=== PATIENT | female | born 1950 | race Two or more races ===

== ENCOUNTER 2017-12-12 13:47 | Inpatient (IN) | payer MEDICARE, OTHER ==
[~2017-12-12] VITALS: Ht 165.1 cm; Wt 76.7 kg
--- NOTE | 2017-12-12 00:24 | NUR ---
SERVICE CAPTAIN OPENING NOTE RECEIVED PATIENT IN BED, ALERT ORIENTED X4, ON ROOM AIR. IN NO APPARENT DISTRESS OR DISCOMFORT AT THIS TIME. RESPIRATIONS EVEN AND UNLABORED, DENIES CHEST PAIN AND SOB. PATIENT ABLE TO VERBALIZE NEEDS. RIGHT HAD IV SALINE LOCK, PATENT AND INTACT FLASHED WITH NS. PATIENT IS UNSTEADY DUE TO DIZZINESS NEEDS ASSISTANCE AMBULATING. ABLE TO REPOSITION IN BED INDEPENDENTLY. ALL NEEDS ATTENDED, SAFETY MEASURES IN PLACE, BED IN LOW LOCKED POSITION, SIDE RAILS UP X2, CALL LIGHT WITHIN EASY REACH, WILL CONTINUE TO MONITOR. Addendum: 12/13/17 at 0622 by JAYLAN NIX RN 12/12 1914 OPENING NOTE
--- NOTE | 2017-12-12 13:56 | NUR ---
IV ACCESS SPEAKER WIRER.
--- NOTE | 2017-12-12 14:00 | NUR ---
[id number] FROM LIBRARY: S/P WITNESSED SYNCOPE, LOW BLOOD PRESSURE. VSS. PT [id number]. SEEN BY MD FOR EVAL. NO HEAD TRAUMA NOTED. PT REPORTS SHE HAD SYNCOPAL EPISODES RECENTLY UNSURE OF THE CAUSE. SAFETY AND COMFORT MEASURES PROVIDED. WILL MONITOR.
[2017-12-12] MEDS ORDERED: ONDANSETRON HCL/PF 4 MG/2 ML VIAL ONE (14:39)
[2017-12-12 14:47] LABS: BASOPHILS % (AUTO) 0.7 % (0.0-2.0); EOSINOPHILS % (AUTO) 1.2 % (0.0-6.0); HEMATOCRIT 34 % (33-45); HEMOGLOBIN 12.2 g/dL (11.5-14.8); LYMPHOCYTES % (AUTO) 26.2 % (20.0-44.0); MEAN CORPUSCULAR HGB CONC 36 g/dl (31.0-36.0); MEAN CORPUSCULAR VOLUME 82 fL (82-100); MONOCYTES # (AUTO) 0.2 /CMM (0.1-1.30); MONOCYTES % (AUTO) 6.3 % (2.0-12.0); NEUTROPHILS # (AUTO) 2.8 /CMM (1.8-8.9); NEUTROPHILS % (AUTO) 65.6 % (43.0-81.0); PLATELET COUNT (AUTO) 199 /CMM (150-450); RDW COEFFICIENT OF VARIATION 12.4 (11.5-15.0); RED BLOOD CELL COUNT(AUTO) 4.16 MIL/uL (4.0-5.2)
[2017-12-12 14:57] LABS: CALCIUM, SERUM 9.2 mg/dL (8.5-10.1); CREATININE 0.8 mg/dL (0.6-1.3)
[2017-12-12] MEDS ORDERED: ONDANSETRON HCL/PF 4 MG/2 ML VIAL IVP ONE (15:00)
[2017-12-12 15:01] LABS: INR 0.9 (0.85-1.15)
[2017-12-12 15:06] LABS: ALBUMIN 3.5 g/dL (3.4-5.0); BILIRUBIN,DIRECT 0.1 mg/dL (0.0-0.2); BILIRUBIN,TOTAL 0.2 mg/dL (0.2-1.0); TOTAL PROTEIN, SERUM 6.5 g/dL (6.4-8.2)
[2017-12-12] MEDS ORDERED: FLUO20CA36 PO (15:37)
[2017-12-12] MEDS ORDERED: GABA800T2 PO (15:37)
[2017-12-12] MEDS ORDERED: HYDR-548 PO (15:37)
[2017-12-12] MEDS ORDERED: BACL10TA PO (15:37)
[2017-12-12] MEDS ORDERED: AMLO5TAB7 PO (15:37)
[2017-12-12] MEDS ORDERED: INTE44DI SQ (15:37)
--- NOTE | 2017-12-12 16:07 | NUR ---
CALLED [employer]ERSON[employer] TELEVISION TUBE INSPECTOR WAS PAGED.
--- NOTE | 2017-12-12 16:35 | NUR ---
REPORT GIVEN TO YANCI Cardoza RN FOR TELE ROOM 306-1
[2017-12-12 17:00] VITALS: BP 134/83
--- NOTE | 2017-12-12 17:00 | NUR ---
PT. ADMITTED TO RM.306-2.UNSTEADY ON FEET,NEEDS ASSIST,ALERT AND ORIENTED X4.PLEASANT AND VS STABLE.HOOKED UP TO TELE SR RATE OF 65.
--- NOTE | 2017-12-12 18:20 | NUR ---
NO COMPLAINTS OFFERED.DR. NARVAEZ HERE NOW GIVING ADMIT ORDERS.
[2017-12-12] MEDS ORDERED: ONDANSETRON HCL/PF 4 MG/2 ML VIAL IVP PRN (19:00)
[2017-12-12] MEDS ORDERED: HYDROCODONE/APAP 10/325MG 1 EA TABLET PO PRN (19:00)
[2017-12-12] MEDS ORDERED: INTERFERON BETA SQ SCH (19:00)
[2017-12-12] MEDS ORDERED: Z GUARD REMEDY 2 OZ OINT TP PRN (19:00)
[2017-12-12] MEDS ORDERED: MAG HYDROX/AL HYDROX/SIMETH 30 ML UDC PO PRN (19:00)
[2017-12-12] MEDS ORDERED: IV NS 0.9% 1,000 ML BAG IV ONE (19:00)
[2017-12-12] MEDS ORDERED: ACETAMINOPHEN 325 MG TABLET PO PRN (19:00)
[2017-12-12] MEDS ORDERED: ALBUMIN SQ SCH (19:00)
[2017-12-12] MEDS ORDERED: MAGNESIUM HYDROXIDE 30 ML UDC PO PRN (19:00)
[2017-12-12] MEDS ORDERED: ZOLPIDEM TARTRATE 5 MG TABLET PO PRN (19:00)
--- NOTE | 2017-12-12 19:00 | NUR ---
PT. STATES RECENT MRI-THINKS SHE HAS A CYST IN SACRAL AREA OF SPINE.
--- NOTE | 2017-12-12 19:15 | NUR ---
[employer]BILE CLUB INFORMATION CLERK OPENING NOTE RECEIVED PATIENT IN BED, ALERT ORIENTED X4, ON ROOM AIR. IN NO APPARENT DISTRESS OR DISCOMFORT AT THIS TIME. RESPIRATIONS EVEN AND UNLABORED, DENIES CHEST PAIN AND SOB. PATIENT ABLE TO VERBALIZE NEEDS. RIGHT HAD IV SALINE LOCK, PATENT AND INTACT FLASHED WITH NS. PATIENT IS UNSTEADY DUE TO DIZZINESS NEEDS ASSISTANCE AMBULATING. ABLE TO REPOSITION IN BED INDEPENDENTLY. ALL NEEDS ATTENDED, SAFETY MEASURES IN PLACE, BED IN LOW LOCKED POSITION, SIDE RAILS UP X2, CALL LIGHT WITHIN EASY REACH, WILL CONTINUE TO MONITOR.
[2017-12-12] MEDS: GABAPENTIN 400 MG CAPSULE PO SCH (19:59)
[2017-12-12 20:00] VITALS: BP 136/75
[2017-12-12] MEDS: HYDROCODONE/APAP 5/325MG 1 EACH TABLET PO PRN (20:00)
[2017-12-12] MEDS: IV NS 0.9% 1,000 ML IV PRN (22:06)
--- NOTE | 2017-12-12 23:20 | NUR ---
PATIENT IV GOT PULLED OUT ACCIDENTLY WHILE TRYING TO GET SOMETHING FROM HER PURSE. REPLACED IV SITE TO RIGHT UPPER ARM 24G.
[2017-12-13] VITALS: BP 148/91
[2017-12-13] MEDS: HYDROCODONE/APAP 5/325MG 1 EACH TABLET PO PRN ×4 (02:39→20:52)
[2017-12-13 04:00] VITALS: BP 133/70
--- NOTE | 2017-12-13 06:23 | NUR ---
BROKERAGE CLERK CLOSING NOTE PATIENT IN BED, SLEEPING, AROUSED EASILY WITH PHYSICAL AND TACTILE STIMULI, ORIENTED X4, ON ROOM AIR. IN NO APPARENT DISTRESS OR DISCOMFORT AT THIS TIME. RESPIRATIONS EVEN AND UNLABORED, DENIES CHEST PAIN AND SOB. PATIENT ABLE TO VERBALIZE NEEDS. RIGHT UPPER ARM IV 24G, SALINE LOCK, PATENT AND INTACT WITH FLUIDS RUNNING AT 100ML/HR. PATIENT IS UNSTEADY DUE TO DIZZINESS NEEDS ASSISTANCE AMBULATING. PATIENT IS AWARE AND CALLS FOR ASSISTANCE. ABLE TO REPOSITION IN BED INDEPENDENTLY. ALL NEEDS ATTENDED, SAFETY MEASURES IN PLACE, BED IN LOW LOCKED POSITION, SIDE RAILS UP X2, CALL LIGHT WITHIN EASY REACH, WILL ENDORSE TO AM NURSE FOR JESUS.
[2017-12-13 06:41] LABS: BASOPHILS % (AUTO) 0.4 % (0.0-2.0); EOSINOPHILS % (AUTO) 1.9 % (0.0-6.0); HEMATOCRIT 34 % (33-45); HEMOGLOBIN 11.6 g/dL (11.5-14.8); LYMPHOCYTES # (AUTO) 1.9 /CMM (0.8-4.8); LYMPHOCYTES % (AUTO) 42.2 % (20.0-44.0); MEAN CORPUSCULAR HGB CONC 34 g/dl (31.0-36.0); MEAN CORPUSCULAR VOLUME 82 fL (82-100); MONOCYTES # (AUTO) 0.3 /CMM (0.1-1.30); MONOCYTES % (AUTO) 6.7 % (2.0-12.0); NEUTROPHILS # (AUTO) 2.2 /CMM (1.8-8.9); NEUTROPHILS % (AUTO) 48.8 % (43.0-81.0); PLATELET COUNT (AUTO) 217 /CMM (150-450); RDW COEFFICIENT OF VARIATION 12.7 (11.5-15.0); WHITE BLOOD COUNT (AUTO) 4.4 K/uL (4.3-11.0)
[2017-12-13 06:51] LABS: CALCIUM, SERUM 8.9 mg/dL (8.5-10.1); CREATININE 0.6 mg/dL (0.6-1.3); PHOSPHORUS 3.4 mg/dL (2.5-4.9); POTASSIUM 4.5 mmol/L (3.5-5.1)
[2017-12-13 08:00] VITALS: BP 127/77
[2017-12-13 09:29] LABS: THYROID STIMULATING HORMONE 3.149 uIU/mL (0.358-3.74)
[2017-12-13] MEDS: IV NS 0.9% 1,000 ML IV PRN (09:55)
[2017-12-13] MEDS: FLUOXETINE HCL 20 MG CAPSULE PO SCH (09:55)
[2017-12-13] MEDS: BACLOFEN (10 MG) 10 MG TABLET PO SCH ×3 (09:55→18:49)
[2017-12-13] MEDS: AMLODIPINE BESYLATE 5 MG TABLET PO SCH (09:55)
[2017-12-13] MEDS: ATORVASTATIN 10 MG TABLET PO SCH ×2 (09:56→10:03)
[2017-12-13] MEDS: GABAPENTIN 400 MG CAPSULE PO SCH ×3 (09:56→18:49)
[2017-12-13 16:00] VITALS: BP 143/83
--- NOTE | 2017-12-13 18:00 | NUR ---
dr. purvis,dr. serrano. in to see pt.medicated x2 with norco for back pain.up to bathrm. multiple times with no complaints of dizziness.
[2017-12-13 20:00] VITALS: BP 126/71
--- NOTE | 2017-12-13 20:00 | NUR ---
RN NOTES PATIENT IN BED, ALERT AND ORIENTED X4, NO SOB, COMPLAINING OF LOWER BACK OF PAIN, AWARE PAIN MEDICATION NOT DUE YET. RECEIVING 2ND BAG OF NS. TELE MONITOR, SR, CONTINENT OF BOWEL AND BLADDER, UNSTEADY GAIT DUE TO MS, ABLE TO AMBULATE TO THE TOILET. KEPT SAFE AND COMFORTABLE, CALL LIGHT WITHIN REACH
[2017-12-13 22:00] VITALS: BP 126/71
[2017-12-14] VITALS: BP 124/68
[2017-12-14 03:05] VITALS: BP 124/68
[2017-12-14 04:00] VITALS: BP 145/81
[2017-12-14 06:15] LABS: CALCIUM, SERUM 9.3 mg/dL (8.5-10.1); CREATININE 0.6 mg/dL (0.6-1.3); POTASSIUM 4.8 mmol/L (3.5-5.1)
[2017-12-14 06:22] LABS: BASOPHILS % (AUTO) 0.4 % (0.0-2.0); EOSINOPHILS % (AUTO) 3.2 % (0.0-6.0); HEMATOCRIT 36 % (33-45); HEMOGLOBIN 12.4 g/dL (11.5-14.8); LYMPHOCYTES # (AUTO) 1.7 /CMM (0.8-4.8); LYMPHOCYTES % (AUTO) 42.9 % (20.0-44.0); MEAN CORPUSCULAR HGB CONC 35 g/dl (31.0-36.0); MEAN CORPUSCULAR VOLUME 82 fL (82-100); MONOCYTES # (AUTO) 0.3 /CMM (0.1-1.30); MONOCYTES % (AUTO) 6.7 % (2.0-12.0); NEUTROPHILS # (AUTO) 1.9 /CMM (1.8-8.9); NEUTROPHILS % (AUTO) 46.8 % (43.0-81.0); PLATELET COUNT (AUTO) 226 /CMM (150-450); RED BLOOD CELL COUNT(AUTO) 4.38 MIL/uL (4.0-5.2)
--- NOTE | 2017-12-14 06:28 | NUR ---
RN NOTES PATIENT IS STABLE, NO DISTRESS DURING SHIFT, GIVEN NORCO X1 ONLY, SLEPT FOR 6 HOURS, ABLE TO AMBULATE TO THE TOILET WITHOUT ASSISTANCE, NEEDS ATTENDED, CALL LIGHT WITHIN REACH.
[2017-12-14] MEDS: HYDROCODONE/APAP 5/325MG 1 EACH TABLET PO PRN ×2 (06:38→12:30)
[2017-12-14 08:00] VITALS: BP 133/75
--- NOTE | 2017-12-14 08:05 | NUR ---
MS RN RECEIVED ON XANDER AWAKE,ALERT,ORIENTED X4, NO IN ANY FORM OF DISTRESS, RESPIRATIONS EVEN AND UNLABORED, NO SOB NOTED, LUNGS ARE CLEAR,ABDOMEN SOFT,POSITIVE BOWEL SOUNDS, DENIES PAIN AT THIS TIME, WILL MONITOR PATIENT'S CONDITION.
--- NOTE | 2017-12-14 08:45 | NUR ---
MS PEREZ BREAKFAST SERVED,DUE MEDS GIVEN GIVEN,TOLERATED WELL.
--- NOTE | 2017-12-14 09:10 | NUR ---
MS RN WAS SEEN BY DR. RODRIGUEZ, NO ORDER AT THIS TIME.
[2017-12-14] MEDS: AMLODIPINE BESYLATE 5 MG TABLET PO SCH (09:14)
[2017-12-14] MEDS: FLUOXETINE HCL 20 MG CAPSULE PO SCH (09:15)
[2017-12-14] MEDS: BACLOFEN (10 MG) 10 MG TABLET PO SCH (09:15)
[2017-12-14] MEDS: GABAPENTIN 400 MG CAPSULE PO SCH ×2 (09:15→12:30)
[2017-12-14 16:00] VITALS: BP 148/78
--- NOTE | 2017-12-14 16:13 | NUR ---
MS RN EEG ON GOING, WILL BE DISCHARGE AFTER EEG DONE.
--- NOTE | 2017-12-14 16:50 | NUR ---
MS RN WENT HOME VIA UBER, DISCHARGE INSTRUCTION GIVEN AND UNDERSTOOD,ALL NEEDS ATTENDED.
== END 2017-12-14 16:30 | disposition home or self-care (01) | DRG 149 ==
LOC: ER 13:49 → TELE 16:51 → MED 12-14 09:38
PROVIDERS: ADMIT Family Medicine; ATTEND Family Medicine
DX: H81.10 Benign paroxysmal vertigo, unspecified ear (principal); E87.1 Hypo-osmolality and hyponatremia; G35 Multiple sclerosis; I10 Essential (primary) hypertension; Z91.011 Allergy to milk products; Z88.0 Allergy status to penicillin; Z91.018 Allergy to other foods; Z79.899 Other long term (current) drug therapy; Z90.710 Acquired absence of both cervix and uterus; Z98.890 Other specified postprocedural states; Z98.1 Arthrodesis status; D64.9 Anemia, unspecified; R73.9 Hyperglycemia, unspecified; E86.1 Hypovolemia; Z82.3 Family history of stroke
CPT/HCPCS: 36415; 70450-TC; 71045-TC; 80048-TC; 80061-TC; 80076-TC; 82306; 82728-TC; 83540-TC; 83735-TC; 84100-TC; 84439-TC; 84443-TC; 85025-TC; 85730-TC; 87081-TC; 93307-TC; 93880-TC; 95819-TC; A4606; J2405; J7030; Z7610

== ENCOUNTER 2017-12-19 13:00 | Outpatient (CLI) | payer MEDICARE, OTHER ==
[~2017-12-19 13:00] MED LIST: AMLO5TAB7 PO; BACL10TA PO; FLUO20CA36 PO; GABA800T2 PO; HYDR-548 PO; INTE44DI SQ
[2017-12-19 13:02] VITALS: BP 166/97
== END 2017-12-19 23:59 | disposition home or self-care (01) ==
LOC: MSC 13:00
PROVIDERS: ATTEND Internal Medicine
DX: G35 Multiple sclerosis (principal); I10 Essential (primary) hypertension; E78.5 Hyperlipidemia, unspecified; M47.816 Spondylosis without myelopathy or radiculopathy, lumbar region

== ENCOUNTER 2018-01-04 08:21 | Day surgery (SDC) | payer MEDICARE ==
[2018-01-04] MEDS ORDERED: LIDOCAINE 1% INJ 50 ML MDV IJ ONE (09:55)
== END 2018-01-04 11:45 | disposition home or self-care (01) ==
LOC: DS 08:21
PROVIDERS: ATTEND Internal Medicine Interventional Cardiology
DX: R55 Syncope and collapse (principal); I10 Essential (primary) hypertension; G89.4 Chronic pain syndrome; M51.16 Intervertebral disc disorders with radiculopathy, lumbar region; Z79.899 Other long term (current) drug therapy; E78.5 Hyperlipidemia, unspecified; F32.9 Major depressive disorder, single episode, unspecified; Z88.0 Allergy status to penicillin; Z91.018 Allergy to other foods; Z91.011 Allergy to milk products; Z98.1 Arthrodesis status; Z90.710 Acquired absence of both cervix and uterus; Z98.890 Other specified postprocedural states; Z82.3 Family history of stroke; G35 Multiple sclerosis
CPT/HCPCS: J3490; J7030; Z7610